=== PATIENT | male | born 1960 | race Caucasian/White ===

== ENCOUNTER 2023-01-02 13:31 | Emergency (ER) | payer MEDICARE, SELFPAY ==
[2023-01-02] VITALS (21 sets, daily range): BP systolic 135–184; BP diastolic 80–133; PULSE 72–85; RESP 12–18; TEMP 36.9; O2SAT 94–99
--- NOTE | ~2023-01-02 | XR_ITS ---
EXAMINATION: XR chest 1V portable Exam Date/Time: 01/02/2023 14:10 [employer] HISTORY: LEFT SIDED CHEST PAIN RADIATES DOWN L ARM, DIZZINESS TODAY Comparison: None available. RESULT: Lines, tubes, and devices: None. Lungs and pleura: Streaky bibasilar scar/atelectasis, otherwise clear. Cardiomediastinal silhouette: Stable. Other: No acute osseous or upper abdominal finding. IMPRESSION: No acute cardiopulmonary process. Reviewed, dictated and finalized at location [facility]. [employer]
--- NOTE | 2023-01-02 13:38 | ED.GENADULT ---
HPI - General Adult General Chief complaint: Dizziness Stated complaint: Dizzy and chest pain Time Seen by Provider: 01/02/23 13:37 Source: patient and family ( Clarice) Mode of arrival: ambulatory Limitations: no limitations History of Present Illness HPI narrative: patient is a 62-year-old white male with no history of heart disease complains chronic back spasm and chest spasm that he has had for years that he says has not changed 1 bed. That started this morning he came in because he had some dizzy sensation like he was going to pass out, lasting about half an hour while driving. He had this 5 days ago that lasted for couple seconds While making breakfast . Denies any nausea vomiting diaphoresis shortness of breath cough previous illness. He stated he took 2 Flexeril 1 prior to admission and the other 1 earlier this morning that he has not been on for some time. He also took his lisinopril this morning. Denies any heart disease lung disease venous thromboembolism. Denies any problems eating drinking stooling voiding bleeding or bruising melena hematochezia rash itching or other pain . This chest pain is gone. He says he does not feel like passing out now but he feels a little squishy. So in other words he does not feel quite right. Related Data Home Medications Medication Instructions Recorded Confirmed cyclobenzaprine 10 mg tablet 10 mg PO TID PRN Spasms 01/02/23 01/02/23 dorzolamide 22.3 mg-timolol 6.8 1 drp LEFT EYE BID 01/02/23 01/02/23 mg/mL eye drops latanoprost 0.005 % eye drops 1 drp EACH EYE DAILY 01/02/23 01/02/23 lisinopril 40 mg tablet 40 mg PO DAILY 01/02/23 01/02/23 meloxicam 15 mg tablet 15 mg PO DAILY 01/02/23 01/02/23 Allergies Allergy/AdvReac Type Severity Reaction Status Date / Time No Known Allergies Allergy Verified 01/02/23 13:43 Exam Narrative: Patient is a white male? and appears in no apparent distress. ? Head is normocephalic atraumatic. ? Eyes:? Pupils are equal round react light extraocular movements are intact. ? Ears:? TMs are normal .? Ear canals are normal.? Hearing is grossly normal. ??Nose:? Normal. ? Throat:? Oropharynx is clear with moist mucous membranes.? Posterior pharynx is clear with no exudates. ? Neck:? Supple no lymphadenopathy.? Full range of motion? without tenderness. ? Lungs:? Clear to auscultation without wheezes rales or rhonchi . ? Heart:? Regular rate and rhythm without murmurs gallops or rubs. ? Back:? Nontender. ? Abdomen:? Positive bowel sounds, soft, nontender, no hepatosplenomegaly or masses, no CVA tenderness, no abdominal bruits, no guarding or rebound. ? Extremities:? Full range of motion nontender .?? No cyanosis clubbing or edema. ?Neuro:? alert and oriented x4.? Motor and sensory grossly intact.? Speech is normal.? Affect normal.? Cranial nerves 2-12 are normal . ? Skin:? Warm and dry without lesions. Course Vital Signs Vital signs: Vital Signs Temperature 36.9 C 01/02/23 13:31 Pulse Rate 82 01/02/23 13:31 Respiratory Rate 18 01/02/23 13:31 Blood Pressure 184/98 H 01/02/23 13:31 Pulse Oximetry 99 01/02/23 13:31 Oxygen Delivery Room Air 01/02/23 13:31 Temperature 36.9 C 01/02/23 13:31 Pulse Rate 85 01/02/23 13:31 Respiratory Rate 18 01/02/23 13:31 Blood Pressure 184/98 H 01/02/23 13:31 Pulse Oximetry 99 01/02/23 13:31 Oxygen Delivery Room Air 01/02/23 13:31 Medical Decision Making Vital Signs Vital Signs: Vital Signs Temperature 36.9 C 01/02/23 13:31 Pulse Rate 82 01/02/23 13:31 Respiratory Rate 18 01/02/23 13:31 Blood Pressure 184/98 H 01/02/23 13:31 Pulse Oximetry 99 01/02/23 13:31 Oxygen Delivery Room Air 01/02/23 13:31 Temperature 36.9 C 01/02/23 13:31 Pulse Rate 85 01/02/23 13:31 Respiratory Rate 18 01/02/23 13:31 Blood Pressure 184/98 H 01/02/23 13:31 Pulse Oximetry 99 01/02/23 13:31 Oxygen Delivery Room Air 01/02/23 13:31 Lab Data
--- NOTE | 2023-01-02 13:51 | ECG_ITS ---
Measurements Intervals [place] Rate: 79 P: 36 CT: 132 QRS: 36 QRSD: 96 T: 59 QT: 365 QTc: 419 Interpretive Statements SINUS RHYTHM WITH OCCASIONAL VENTRICULAR PREMATURE COMPLEXES ABNORMAL ECG NO PREVIOUS ECG AVAILABLE FOR COMPARISON Electronically Signed On 01-03-2023 10:13:14 [employer] by Wilberto Galvez M.D.
[2023-01-02 14:11] LABS: Hematocrit 41.9 % (40.0-54.0); Hemoglobin 14.1 g/dL (14.0-18.0); Mean Corpuscular HGB Conc 33.7 g/dL (32.0-36.0); Mean Corpuscular Hemoglobin 31.2 pg (27.0-31.0); Mean Corpuscular Volume 92.7 fL (78.0-102.0); Mean Platelet Volume 9.5 fl (8.7-11.0); Platelet Count Result 183 K/mm3 (150-420); Red Blood Count 4.52 M/mm3 (4.70-6.10); Red Cell Distribution Width 11.8 % (11.6-14.4); White Blood Count 6.5 K/mm3 (4.8-10.8)
[2023-01-02 14:26] LABS: D Dimer 0.43 mg/L (0.19-0.50); Partial Thromboplastin Time 28.3 SEC (23.90-30.70); Prothrombin Time 11.1 Seconds (9.50-12.10)
[2023-01-02 14:29] LABS: Alanine Aminotransferase 43 U/L (16-63); Alkaline Phosphatase 80 U/L (46-116); Anion Gap 7 mmol/L (8-16); Aspartate Amino Transferase 23 U/L (15-37); Bilirubin,Total 0.4 mg/dL (0.00-1.00); Blood Urea Nitrogen 17 mg/dL (7-18); Calcium 9.2 mg/dL (8.5-10.1); Carbon Dioxide 30 mmol/L (21-32); Chloride 101 mmol/L (98-108); Estimated CRCL calculation 84 ml/min; Estimated Glomerular Filt Rate > 60; Glucose 111 mg/dL (70-99); Lipase 104 U/L (16-77); Magnesium 1.8 mg/dL (1.8-2.4); Osmolality Calculated 288 mOsm/kg (285-295); Potassium 4.3 mmol/L (3.5-5.1); Sodium 138 mmol/L (136-145); Total Protein 8.2 g/dL (6.4-8.2); Troponin I 7.8 ng/L (0.00-60.4)
--- NOTE | 2023-01-02 14:43 | ED.GENADULT ---
HPI - General Adult General Chief complaint: Dizziness Stated complaint: Dizzy and chest pain Time Seen by Provider: 01/02/23 13:37 Source: patient and family ( Clarice) Mode of arrival: ambulatory Limitations: no limitations History of Present Illness HPI narrative: patient is a 62-year-old white male with no history of heart disease complains chronic back spasm and chest spasm that he has had for years that he says has not changed 1 bed.? That started this morning he came in because he had some dizzy sensation like he was going to pass out, lasting about half an hour while driving.? He had this 5 days ago that lasted for couple seconds? While making breakfast .? Denies any nausea vomiting diaphoresis shortness of breath cough previous illness.? He stated he took 2 Flexeril 1 prior to admission and the other 1 earlier this morning that he has not been on for some time.? He also took his lisinopril this morning.? Denies any heart disease lung disease venous thromboembolism.? Denies any problems eating drinking stooling voiding bleeding or bruising melena hematochezia rash itching or other pain .? This chest pain is gone.? He says he does not feel like passing out now but he feels a little squishy.? So in other words he does not feel quite right.? Radiation: non-radiation Related Data Home Medications Medication Instructions Recorded Confirmed cyclobenzaprine 10 mg tablet 10 mg PO TID PRN Spasms 01/02/23 01/02/23 dorzolamide 22.3 mg-timolol 6.8 1 drp LEFT EYE BID 01/02/23 01/02/23 mg/mL eye drops latanoprost 0.005 % eye drops 1 drp EACH EYE DAILY 01/02/23 01/02/23 lisinopril 40 mg tablet 40 mg PO DAILY 01/02/23 01/02/23 meloxicam 15 mg tablet 15 mg PO DAILY 01/02/23 01/02/23 Allergies Allergy/AdvReac Type Severity Reaction Status Date / Time No Known Allergies Allergy Verified 01/02/23 13:43 Review of Systems Constitutional: Constitutional: Denies chills, Denies fatigue, Denies fever(s) and Denies weakness Eyes: Eyes: Denies no additional eye complaints and Denies change in vision ENT: Reports system reviewed and no additional complaints, except as documented, Denies dysphagia, Reports dizziness, Denies epistaxis, Denies nasal congestion and Denies sore throat Cardiovascular: Cardiovascular: Reports as per HPI and Reports chest pain Respiratory: Respiratory: Reports as per HPI, Denies chest congestion, Denies cough, Denies dyspnea and Denies wheezing Gastrointestinal: Gastrointestinal: Reports as per HPI and Reports no additional gastrointestinal complaints Genitourinary: Genitourinary: Reports no additional male genitourinary complaints, Denies dysuria and Denies urinary frequency Musculoskeletal: Musculoskeletal: Reports no additional musculoskeletal complaints, Reports as per HPI, Reports back pain and Reports arthralgias Integumentary/Breasts: Skin/Breast: Reports system reviewed and no additional complaints, except as docu and Denies rash Neurologic: Reports system reviewed and no additional complaints, except as documented, Reports dizziness, Denies syncope, Denies headache(s), Denies focal weakness, Denies numbness and Denies weakness Psychiatric: Psychiatric: Denies anxiety and Denies depression Endocrine: Endocrine: Denies fatigue Hematologic/Lymphatic: Hematologic/Lymphatic: Denies easy bleeding and Denies easy bruising PMFSH Comments On disability since 2015 for right hip and left knee replacements,, kidney stones, GERD. Exam Narrative: Patient is a white male? and appears in no apparent distress. ? Head is normocephalic atraumatic. ? Eyes:? Pupils are equal round react light extraocular movements are intact. ? Ears:? TMs are normal .? Ear canals are normal.? Hearing is grossly normal. ??Nose:? Normal. ? Throat:? Oropharynx is clear with moist mucous membranes.? Posterior pharynx is clear with no exudates. ? Neck:? Supple no lymphadenopathy.? Full range of motion? without tenderness. ? Lungs:? Clear to
--- NOTE | 2023-01-02 15:06 | PC.NURSE ---
pt up to rr without distress. family has returned to bedside. nad noted. pt is awaiting urine results at this time. will continue to monitor.
[2023-01-02 15:19] LABS: Amphetamine Screen Urine Negative (Negative); Barbiturate Screen Urine Negative (Negative); Benzodiazepines Screen Urine Negative (Negative); Cannabinoid Screen Urine Positive (Negative); Cocaine Screen Urine Negative (Negative); Methadone Screen Urine Negative (Negative); Opiate Screen Urine Negative (Negative); Phencyclidine Screen Urine Negative (Negative)
== END 2023-01-02 15:50 | disposition home or self-care (01) ==
PROVIDERS: Emergency Provider Emergency Medicine; PCP Hospitalist
DX: R07.89 Other chest pain (principal); R42 Dizziness and giddiness; Z79.1 Long term (current) use of non-steroidal anti-inflammatories (NSAID); Z79.899 Other long term (current) drug therapy
CPT/HCPCS: 36415; 71045; 80053; 80307; 83690; 83735; 84484; 85027; 85380; 85610; 85730; 93005; 99284